=== PATIENT | female | born 1965 | race Caucasian/White ===

== ENCOUNTER 2018-11-25 14:16 | Emergency (ER) | payer BC, SELFPAY ==
[2018-11-25 14:19] VITALS: BP 147/80; PULSE 74; RESP 20; TEMP 37.1; O2SAT 97
--- NOTE | 2018-11-25 14:23 | W.ED.GENAD ---
Discharge Plan Disposition Patient Disposition: HOME Condition: Stable Discharge Details Chief Complaint: FacialProb Clinical Impression: Contusion of nose Primary Care Provider: Helga Herr ED Provider: Simone Gonzales Home Meds and New Rx's Prescriptions: No Action levothyroxine 25 MCG tablet 50 mcg PO DAILY RF: 0 trazodone 150 MG tablet 100 mg PO HS RF: 0 thyroid (pork) [[place] Thyroid] 30 mg Tablet 45 mg PO DAILY RF: 0 Discharge Instructions Additional Instructions: You can take 1000mg tylenol and 600mg ibuprofen every 6 hours for pain as needed when the swelling subsides if you feel there is a deformity of the nose follow up with your primary care provider to discuss ENT referral return to the emergency department if you have uncontrolled bleeding, persistent vomit, difficulty breathing or severe worsening of pain Medical Decision Making 53 yo female with no chronic medical problems comes in with chief complaint of nose/face pain. Her dog accidentally head butted her in the face about 30 minutes ago. HAd small amount of nose bleeding, none since. 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 She has no neck tenderness. Her nose is swollen, remains midline, no septal hemoatoma, full rom of the jaw and no palpable loose teeth. I suspect nose fx vs contusion. Given how straight the nose is even if there is a fx no tx inidicated at this time, and given this declines imaging at this time. Advised f/u with pcp and return precautions given Differential Diagnosis fracture, contusion HPI General Mode of arrival: ambulatory. Date/Time Provider Initiated Documentation: 11/25/18 14:17. Limitations to Documentation: no limitations. Information obtained by: patient. History of Present Illness 53 year old F presents to the emergency department with the chief complaint of nose pain, described as moderate, and is localized to the face. Patient started experiencing this minute(s) (30) and it has been constant. No relieving factors improve symptom(s), No exacerbating factors reported . Patient did receive the following treatments prior to arrival, none Related Data Home Medications Medication Instructions Recorded Confirmed levothyroxine 50 mcg PO DAILY 03/21/13 06/10/17 trazodone 100 mg PO HS 03/21/13 11/25/18 thyroid (pork) [[place] Thyroid] 45 mg PO DAILY 11/25/18 11/25/18 Allergies Allergy/AdvReac Type Severity Reaction Status Date / Time levofloxacin [From Levaquin] Allergy Severe Unverified 06/10/17 17:59 sulfamethoxazole Allergy Severe swollen Unverified 06/10/17 17:59 [From Bactrim] lips/face trimethoprim [From Bactrim] Allergy Severe swollen Unverified 06/10/17 17:59 lips/face ciprofloxacin [From Cipro] Allergy Unverified 11/25/18 14:22 General Stated Complaint: FacialProb ROM: 4 Review of Systems Review of Systems All systems reviewed & are unremarkable except as noted in HPI and below Constitutional Denies chills, Denies fever(s) and Denies weakness ENT Denies change in voice Cardiovascular Denies chest pain and Denies dyspnea Respiratory Denies dyspnea Gastrointestinal Denies abdominal pain, Denies nausea and Denies vomiting Musculoskeletal Denies joint swelling Integumentary/Breasts Denies rash Neurologic Denies weakness PFSH Social History Smoking/Tobacco Use Status: Former Tobacco Use Alcohol Intake: never Drug use: Never Substance use type: does not use Do you feel safe at home: Yes Do you feel safe in your relationship?: Yes Exam Const General: no acute distress Orientation: alert HENMT Head: normal to inspection Ears: external ears normal General nose exam: external nose normal Mouth: moist mucous membranes Eyes General: appearance normal, both eyes and all related structures Neck Neck: normal visual inspection Resp Effort & Inspection: normal respiratory effort and able to speak in complete sentences Cardio Rate: regular rate Skin General skin exam: no rashes or lesions noted Neuro General: alert and oriented x3 Extrem General: normal to inspection Psych Mental Status: mental status grossly normal Course Vital Signs Temperature 37.1 C 11/25/18 14:19 Pulse 74 11/25/18 14:19 Respiratory Rate 20 11/25/18 14:19 Blood Pressure 147/80 H 11/25/18 14:19 Pulse Oximetry 97 11/25/18 14:19 Temperature 37.1 C 11/25/18 14:19 Temperature Source Temporal Artery Scan 11/25/18 14:19 Pulse 74 11/25/18 14:19 Respiratory Rate 20 11/25/18 14:19 Respiratory Effort Non-Labored 11/25/18 14:19 Blood Pressure 147/80 H 11/25/18 14:19 Blood Pressure Position Sitting 11/25/18 14:19 Pulse Oximetry 97 11/25/18 14:19 Pain Level 8 11/25/18 14:19
--- NOTE | 2018-11-25 14:34 | ED.GENADUL_ITS ---
Discharge Plan Disposition Patient Disposition: HOME Condition: Stable Discharge Details Chief Complaint: FacialProb Clinical Impression: Contusion of nose Primary Care Provider: Hegla Herr ED Provider: Simone Gonzales Home Meds and New Rx's Prescriptions: No Action levothyroxine 25 MCG tablet 50 mcg PO DAILY RF: 0 trazodone 150 MG tablet 100 mg PO HS RF: 0 thyroid (pork) [[place] Thyroid] 30 mg Tablet 45 mg PO DAILY RF: 0 Discharge Instructions Additional Instructions: You can take 1000mg tylenol and 600mg ibuprofen every 6 hours for pain as needed when the swelling subsides if you feel there is a deformity of the nose follow up with your primary care provider to discuss ENT referral return to the emergency department if you have uncontrolled bleeding, persistent vomit, difficulty breathing or severe worsening of pain Medical Decision Making 53 yo female with no chronic medical problems comes in with chief complaint of nose/face pain. Her dog accidentally head butted her in the face about 30 minutes ago. HAd small amount of nose bleeding, none since. 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 She has no neck tenderness. Her nose is swollen, remains midline, no septal hemoatoma, full rom of the jaw and no palpable loose teeth. I suspect nose fx vs contusion. Given how straight the nose is even if there is a fx no tx inidicated at this time, and given this declines imaging at this time. Advised f/u with pcp and return precautions given Differential Diagnosis fracture, contusion HPI General Mode of arrival: ambulatory . Date/Time Provider Initiated Documentation: 11/25/18 14:17 . Limitations to Documentation: no limitations . Information obtained by: patient . History of Present Illness 53 year old F presents to the emergency department with the chief complaint of nose pain, described as moderate, and is localized to the face. Patient started experiencing this minute(s) (30) and it has been constant. No relieving factors improve symptom(s), No exacerbating factors reported . Patient did receive the following treatments prior to arrival, none Related Data Home Medications Medication Instructions Recorded Confirmed levothyroxine 50 mcg PO DAILY 03/21/13 06/10/17 trazodone 100 mg PO HS 03/21/13 11/25/18 thyroid (pork) [[place] Thyroid] 45 mg PO DAILY 11/25/18 11/25/18 Allergies Allergy/AdvReac Type Severity Reaction Status Date / Time levofloxacin [From Levaquin] Allergy Severe Unverified 06/10/17 17:59 sulfamethoxazole Allergy Severe swollen Unverified 06/10/17 17:59 [From Bactrim] lips/face trimethoprim [From Bactrim] Allergy Severe swollen Unverified 06/10/17 17:59 lips/face ciprofloxacin [From Cipro] Allergy Unverified 11/25/18 14:22 General Stated Complaint: FacialProb ROM: 4 Review of Systems Review of Systems All systems reviewed & are unremarkable except as noted in HPI and below Constitutional Denies chills, Denies fever(s) and Denies weakness ENT Denies change in voice Cardiovascular Denies chest pain and Denies dyspnea Respiratory Denies dyspnea Gastrointestinal Denies abdominal pain, Denies nausea and Denies vomiting Musculoskeletal Denies joint swelling Integumentary/Breasts Denies rash Neurologic Denies weakness PFSH Social History Smoking/Tobacco Use Status: Former Tobacco Use Alcohol Intake: never Drug use: Never Substance use type: does not use Do you feel safe at home: Yes Do you feel safe in your relationship?: Yes Exam Const General: no acute distress Orientation: alert HENMT Head: normal to inspection Ears: external ears normal General nose exam: external nose normal Mouth: moist mucous membranes Eyes General: appearance normal, both eyes and all related structures Neck Neck: normal visual inspection Resp Effort & Inspection: normal respiratory effort and able to speak in complete sentences Cardio Rate: regular rate Skin General skin exam: no rashes or lesions noted Neuro General: alert and oriented x3 Extrem General: normal to inspection Psych Mental Status: mental status grossly normal Course Vital Signs Temperature 37.1 C 11/25/18 14:19 Pulse 74 11/25/18 14:19 Respiratory Rate 20 11/25/18 14:19 Blood Pressure 147/80 H 11/25/18 14:19 Pulse Oximetry 97 11/25/18 14:19 Temperature 37.1 C 11/25/18 14:19 Temperature Source Temporal Artery Scan 11/25/18 14:19 Pulse 74 11/25/18 14:19 Respiratory Rate 20 11/25/18 14:19 Respiratory Effort Non-Labored 11/25/18 14:19 Blood Pressure 147/80 H 11/25/18 14:19 Blood Pressure Position Sitting 11/25/18 14:19 Pulse Oximetry 97 11/25/18 14:19 Pain Level 8 11/25/18 14:19
== END 2018-11-25 14:36 | disposition home or self-care (01) ==
PROVIDERS: Emergency Provider Emergency Medicine; PCP Family Medicine
DX: S00.33XA Contusion of nose, initial encounter (principal); W54.1XXA Struck by dog, initial encounter
CPT/HCPCS: 99282

== ENCOUNTER 2019-05-12 12:07 | Outpatient (CLI) | payer BC, SELFPAY ==
[2019-05-13 13:38] LABS: Lyme Ab w Rflx to Lyme Confirm Negative
== END 2019-05-12 12:27 ==
PROVIDERS: PCP Family Medicine; Visit Provider Otolaryngology
DX: R60.9 Edema, unspecified (principal)
CPT/HCPCS: 36415; 86618

== ENCOUNTER 2019-11-21 13:50 | Outpatient (CLI) | payer BC, SELFPAY ==
--- NOTE | 2019-11-21 13:45 | DI.RAD_ITS ---
EXAM: XR ANKLE LT COMPLETE CLINICAL HISTORY: ANKLE PAIN TECHNIQUE: 2D digital imaging was performed. COMPARISON: No exams were available for comparison FINDINGS: BONES: No acute fracture is present. There is a lucency in the medial aspect of the talar dome, which may represent an osteochondral defect. JOINTS:The ankle mortise is normally aligned. SOFT TISSUE: Normal. IMPRESSION: Findings suggestive of an osteochondral lesion of the talar dome. DATA REPOSITORY: RADIATION DOSE DELIVERED:
--- NOTE | 2019-11-21 13:45 | DI.RAD_ITS ---
EXAM: XR HIP RT COMPLETE AND AP PELVIS CLINICAL HISTORY: HIP PAIN. TECHNIQUE: 2D digital imaging was performed. COMPARISON: No exams were available for comparison FINDINGS: BONES: No acute fracture is present. No bony destructive lesion is seen. JOINTS: The joint space is well maintained. SOFT TISSUE: Normal. IMPRESSION: No acute abnormality. DATA REPOSITORY: RADIATION DOSE DELIVERED:
== END 2019-11-21 14:10 ==
PROVIDERS: PCP Family Medicine; Visit Provider Student in an Organized Health Care Education/Training Program
DX: M25.551 Pain in right hip (principal); M25.572 Pain in left ankle and joints of left foot; M89.8X7 Other specified disorders of bone, ankle and foot
CPT/HCPCS: 73502; 73610

== ENCOUNTER 2020-01-03 01:12 | Outpatient (CLI) | payer BC, SELFPAY ==
--- NOTE | 2020-01-03 10:50 | DI.MRI_ITS ---
EXAM: MR LOWER JOINT LT WO CLINICAL HISTORY: L ANKLE PAIN,OSTEOCHONDRAL TALAR DOME LESION, M89.9, M94.9. TECHNIQUE: Multiplanar multisequence MRI was performed. COMPARISON: XR ANKLE LT COMPLETE from 11/21/2019 FINDINGS: MR of the ankle was performed according to the usual protocol. Bones: There is abnormal signal of the medial aspect of the talus and there is a focal multiloculated subchondral cystic defect of medial talar dome as noted on recent plain films. This measures about 14 x 8 x 5 millimeters. The overlying cortex appears intact. There are subchondral cysts of the fibula at the talofibular joint, the central portion of the calcan eus and subtalar portion of the calcaneus, as well as the talus adjacent to the anterior subtalar price nt. Articular cartilage: Articular cartilage appears grossly intact as visualized. Ligaments: No significant ligamentous disruption of the joints of the ankle. Tendons: Mildly abnormal signal noted at plantar fascia attachment on the calcaneus. Achilles is unr emarkable. Medial and lateral tendons of the ankle are unremarkable. Additional: Small tibiotalar joint effusion. 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 Defect measures about 14 x 8 x 5 millimeters. DATA REPOSITORY:
== END 2020-01-03 01:32 ==
LOC: DI 01:12
PROVIDERS: PCP Family Medicine; Visit Provider Student in an Organized Health Care Education/Training Program
DX: M25.572 Pain in left ankle and joints of left foot (principal); M25.472 Effusion, left ankle; M93.272 Osteochondritis dissecans, left ankle and joints of left foot
CPT/HCPCS: 73721

== ENCOUNTER 2020-02-28 01:18 | Outpatient (CLI) | payer BC, SELFPAY ==
[2020-02-28 15:06] LABS: Abs Immature Grans 0.01 k/cumm (0.0-0.09); Absolute Basophil Count 0.02 k/cumm (0.0-0.2); Absolute Eosinophil Count 0.22 k/cumm (0.0-0.7); Absolute Monocyte Count 0.53 k/cumm (0.11-0.7); Absolute Neutrophil Count 3.64 k/cumm (1.2-6.7); Basophils % 0.3; Eosinophils % 3.4; HCT 40.7 % (36.0-46.0); HGB 14.2 g/dL (12.0-15.5); Immature Grans % 0.2 %; Lymphocytes % 31.2; Mean Corp. HGB Concentration 34.9 g/dL (32.0-36.0); Mean Corpuscular Hemoglobin 31.2 pg (27.0-33.0); Mean Corpuscular Volume 89.5 fL (80-95); Mean Platelet Volume 10.5 fL (8.0-11.0); Monocytes % 8.3; Neutrophils % 56.6; Platelet Count 258 x1000/uL (130-400); RBC 4.55 m/cumm (4.00-5.20); White Blood Cell Count 6.42 k/cumm (4.4-10.8)
[2020-02-28 15:55] LABS: ESR 14 mm/hr (0-30)
[2020-02-28 21:40] LABS: Rheumatoid Factor <8.6 IU/mL (<12.0)
[2020-02-29 15:03] LABS: ANA Interpretation Negative (Negative)
== END 2020-02-28 01:38 ==
PROVIDERS: PCP Family Medicine; Visit Provider Orthopaedic Surgery Foot and Ankle Surgery
DX: M06.9 Rheumatoid arthritis, unspecified (principal)
CPT/HCPCS: 85652; 85025; 86038; 86431

== ENCOUNTER 2020-12-13 09:50 | Emergency (ER) | payer BC, SELFPAY ==
[2020-12-13] VITALS (34 sets, daily range): BP systolic 104–146; BP diastolic 71–90; PULSE 59–76; RESP 8–19; TEMP 36.5; O2SAT 94–99
--- NOTE | 2020-12-13 09:45 | RT.EKG_ITS ---
APPROVED REPORT Exam: Resting ECG Patient Location: E HR:58 bpm ECG Measurements Heart Rate 58 AXIS AL 158 P 46 QRSd 98 QRS 34 QT 407 T 35 QTc 401 Conclusion Sinus bradycardia...rate< 60 I have reviewed and interpreted ECG and agree with software generated interpretation.
--- NOTE | 2020-12-13 10:10 | ED.GENADUL_ITS ---
Discharge Plan Disposition Patient Disposition: HOME Condition: Stable Discharge Details Clinical Impression: Chest wall pain, Diarrhea, COVID-19, Acute otitis media with effusion of left ear Primary Care Provider: Helga Herr ED Provider: Katherine Ramirez Home Meds and New Rx's Prescriptions: New amoxicillin 500 mg capsule 500 mg PO TID 7 Days Qty: 21 RF: 0 prednisone 20 mg tablet See Rx Instructions .ROUTE .COMPLEX Qty: 12 RF: 0 Continued bupropion HCl [Wellbutrin XL] 300 mg tablet extended release 24 hr 300 mg PO QAM RF: 0 levothyroxine 25 MCG tablet 50 mcg PO DAILY RF: 0 trazodone 150 MG tablet 100 mg PO HS RF: 0 thyroid (pork) [[place] Thyroid] 30 mg Tablet 45 mg PO DAILY RF: 0 Discharge Instructions Instructions: Ear Infection (ED), Acute Diarrhea (ED), Chest Wall Pain (ED) Additional Instructions: Drink plenty of fluids and get plenty of rest. Alternate tylenol and motrin as needed and directed for pain. Your prescriptions have been sent electronically to your pharmacy. Call the pharmacy to make sure your prescriptions are ready before pickup. Take the prescriptions as directed. Call your primary care doctor's office today to schedule a follow-up appointment for reevaluation and for outpatient Covid test and for outpatient stress test if your chest pain persists. Call your ENT doctor today to reschedule your follow-up appointment for your left ear pain. Return immediately to the emergency department if you develop any worsening or new concerning symptoms. Stand Alone Forms: Work Release Discharge Data Discharge Physician: Katherine Ramirez Medical Decision Making 1015 -- 55yo F w/ a h/o anxiety, depression, hypothyroidism who is recently diagnosed with COVID on 11/25 presents for chest pain and shortness of breath since yesterday, worse today. EKG on arrival notes a rate of 58, sinus, no STEMI, not diagnostic. Vitals within normal limits. O2 sat 98% on RA. Pt appears comfortable without any signs of respiratory distress. Lungs CTA b/l. Differential diagnoses include pneumonia, PE, dehydration, electrolyte abnormality, etc. Will place an IV, bolus IVF, IV toradol and zofran, screening labs and CT chest. 1220 --patient has remained hemodynamically stable on the monitor. Oxygen saturation 96-98 % on room air. Labs and imaging reviewed and unremarkable. Normal white blood cell count. Negative troponin. AST elevated at 90. CT chest negative for PE and pneumonia. Patient reassessed and she states she feels slightly better. As patient is not considered high risk, she did not qualify for monoclonal antibody infusion. She is agreeable to stay for repeat troponin. 1400 --repeat troponin negative. Repeat EKG unchanged. Patient reassessed and she still feels better and feels good to go home. Oxygen saturation has remained 97 to 98% on room air. As patient has also complained of left ear pressure and appears consistent with otitis media with effusion, will treat with p.o. steroids and antibiotics. She was given 1 dose of each here and prescriptions sent electronically to her pharmacy. She was advised to call her primary care doctor today to schedule a follow-up appointment for reevaluation and for recommendations when to return to work. She was also advised to follow-up with ENT for reevaluation. Usual and customary return precautions given prior to discharge. Medical Records Medical records reviewed: Yes I reviewed the patient's medical records. Imaging Data Radiologic Study: Radiologist's impression: CT CHEST PE CTA CLINICAL HISTORY: chest tightness, sob, r/o PE/pneumonia. TECHNIQUE: Imaging Protocol: Axial CT angiography was performed with multi- slice acquisition and multi-planar and/or 3D reconstructions. CONTRAST MATERIAL: Intravenous: Omnipaque 350 Contrast volume:structured data in ml COMPARISON: US ABDOMEN ULTRASOUND (P) from 05/20/2011 US ABDOMEN ULTRASOUND (P) from 05/20/2011 FINDINGS: Pulmonary Arteries: No evidence of filling defect to suggest pulmonary emboli. Tracheobronchial tree: Patent where visualized. Mediastinum and Alyce: No dominant adenopathy or fluid collection. Pulmonary parenchyma: No consolidation or dominant measurable mass. Lungs are expiratory limiting evaluation for pneumonia. Dependent changes are seen. Pleura: No effusion or pneumothorax. Heart: The heart is not dilated. No coronary artery calcifications are seen. Aorta: Thoracic aorta non-dilated. Upper abdomen: Status post cholecystectomy. Liver cyst. Bones: Mild degenerative disc changes. Tubes, Catheters, and Lines: None IMPRESSION: No evidence of pulmonary embolism or other acute abnormality.. Lab Data Lab results reviewed: Yes I reviewed the patient's lab results. Labs: Laboratory Tests Range/Units 12/13/20 12/13/20 12/13/20 10:15 10:15 10:15 WBC (4.4-10.8) 10^3/uL 5.66 RBC (3.93-5.22) 10^6/uL 4.59 Hgb (11.2-15.7) g/dL 14.1 Hct (36.0-46.0) % 40.3 MCV (80-95) fL 87.8 MCH (27.0-33.0) pg 30.7 MCHC (32.0-36.0) % 35.0 RDW (11.7-14.6) % 11.6 L Plt Count (130-400) 10^3/uL 224 MPV (8.0-11.0) fL 10.5 Immature Gran % 0.7 Neutrophils % 47.9 Lymphocytes % 36.9 Monocytes % 10.8 Eosinophils % 3.0 Basophils % 0.7 Nucleated RBC % % 0 Absolute Neutrophils (1.2-6.7) 10^3/uL 2.71 Absolute Lymphocytes (1.2-3.4) 10^3/uL 2.09 Absolute Monocytes (0.1-0.8) 10^3/uL 0.61 Absolute Eosinophils (0.0-0.7) 10^3/uL 0.17 Absolute Basophils (0.0-0.2) 10^3/uL 0.04 PT (9.3-11.0) sec 9.8 INR (0.9-1.1) 1.0 APTT (21.0-27.5) sec 23.0 Sodium (136-145) mmol/L 138 Potassium (3.5-5.1) mmol/L 4.3 Chloride (98-107) mmol/L 103 Carbon Dioxide (21.0-32.0) mmol/L 29.3 Anion Gap (3-11) mmol/L 5.7 BUN (7-18) mg/dL 15 Creatinine (0.55-1.02) mg/dL 0.8 Estimated GFR/1.73 m2 (mL/min/1.73m2) >= 60.00 Glucose (74-106) mg/dL 80 Calcium (8.5-10.1) mg/dL 9.5 Magnesium (1.8-2.4) mg/dL 1.9 Total Bilirubin (0.2-1.0) mg/dL 0.5 AST (15-37) U/L 37 ALT (14-59) U/L 90 H Alkaline Phosphatase (46-116) U/L 68 Troponin I (<0.06) ng/mL < 0.05 Total Protein (6.4-8.2) g/dL 7.2 Albumin (3.4-5.0) g/dL 4.1 Range/Units 12/13/20 13:15 WBC (4.4-10.8) 10^3/uL RBC (3.93-5.22) 10^6/uL Hgb (11.2-15.7) g/dL Hct (36.0-46.0) % MCV (80-95) fL MCH (27.0-33.0) pg MCHC (32.0-36.0) % RDW (11.7-14.6) % Plt Count (130-400) 10^3/uL MPV (8.0-11.0) fL Immature Gran % Neutrophils % Lymphocytes % Monocytes % Eosinophils % Basophils % Nucleated RBC % % Absolute Neutrophils (1.2-6.7) 10^3/uL Absolute Lymphocytes (1.2-3.4) 10^3/uL Absolute Monocytes (0.1-0.8) 10^3/uL Absolute Eosinophils (0.0-0.7) 10^3/uL Absolute Basophils (0.0-0.2) 10^3/uL PT (9.3-11.0) sec INR (0.9-1.1) APTT (21.0-27.5) sec Sodium (136-145) mmol/L Potassium (3.5-5.1) mmol/L Chloride (98-107) mmol/L Carbon Dioxide (21.0-32.0) mmol/L Anion Gap (3-11) mmol/L BUN (7-18) mg/dL Creatinine (0.55-1.02) mg/dL Estimated GFR/1.73 m2 (mL/min/1.73m2) Glucose (74-106) mg/dL Calcium (8.5-10.1) mg/dL Magnesium (1.8-2.4) mg/dL Total Bilirubin (0.2-1.0) mg/dL AST (15-37) U/L ALT (14-59) U/L Alkaline Phosphatase (46-116) U/L Troponin I (<0.06) ng/mL < 0.05 Total Protein (6.4-8.2) g/dL Albumin (3.4-5.0) g/dL ECG Data Attestation: I personally reviewed and interpreted this ECG (s) as follows: Interpretation: #1 -- rate of 58, sinus, no acute ST elevation or depression. [place] 158. QRS 98. QTc 401. #2 -- rate pf 67, sinus, no acute ST elevation or depression. [place] 169. QRS 96. QTc 428. HPI General Mode of arrival: ambulatory . Date/Time Provider Initiated Documentation: 12/13/20 09:50 . Limitations to Documentation: no limitations . Information obtained by: patient . HPI Narrative: Patient is a 55-year-old female with a history of anxiety, depression, hypothyroidism who recently tested positive for Covid on November 25 who presents to the ED with complaint of chest pain and shortness of breath since yesterday, worse this morning. Patient states she has had sharp chest pain for the past few days but became much worse this morning. She states she has had shortness of breath for the past week but this is worse today as well. She states she mainly has dyspnea on exertion. She states her chest pain occurs at random but also is worse with deep breaths. She describes the pain as substernal, pressure and sharp, without radiation and currently 4/10. He states he has been alternating Tylenol and Motrin for your diagnosed with Covid but has not taken any medication this morning. She states she contracted Covid from a coworker last month. She states she initially had profound weakness and then developed diarrhea. She states she has 1-2 episodes of watery brown or yellow diarrhea daily. She also admits to L ear pressure for the past week. She also admits to loss of sense of smell and taste. She states she has had intermittent chills and dry cough. She admits to nausea this morning. She denies abdominal pain, urinary symptoms. Related Data Home Medications Medication Instructions Recorded Confirmed levothyroxine 50 mcg PO DAILY 03/21/13 12/13/20 trazodone 100 mg PO HS 03/21/13 12/13/20 thyroid (pork) [[place] Thyroid] 45 mg PO DAILY 11/25/18 12/13/20 bupropion HCl 300 mg 24 hr tablet, 300 mg PO QAM 11/21/19 12/13/20 extended release amoxicillin 500 mg PO TID 7 Days #21 cap 12/13/20 prednisone See Rx Instructions .ROUTE 12/13/20 .COMPLEX #12 tab Previous Rx's Medication Instructions Recorded amoxicillin 500 mg PO TID 7 Days #21 cap 12/13/20 prednisone See Rx Instructions .ROUTE 12/13/20 .COMPLEX #12 tab Allergies Allergy/AdvReac Type Severity Reaction Status Date / Time levofloxacin [From Levaquin] Allergy Severe Unverified 12/13/20 10:05 sulfamethoxazole Allergy Severe swollen Unverified 12/13/20 10:05 [From Bactrim] lips/face trimethoprim [From Bactrim] Allergy Severe swollen Unverified 12/13/20 10:05 lips/face ciprofloxacin [From Cipro] Allergy Unverified 12/13/20 10:05 General Stated Complaint: RespSymp ROM: 2 Review of Systems All systems reviewed & are unremarkable except as noted in HPI and below Constitutional Constitutional: Reports as per HPI, Denies chills and Denies fever(s) Eyes Eyes: Denies blurry vision ENT Ears, Nose, Mouth, and Throat: Denies dizziness, Denies sore throat and Denies throat swelling Cardiovascular Cardiovascular: Reports chest pain and Reports dyspnea Respiratory Respiratory: Reports cough and Reports dyspnea Gastrointestinal Gastrointestinal: Denies abdominal pain, Denies diarrhea and Denies vomiting Genitourinary Genitourinary: Denies hematuria and Denies dysuria Musculoskeletal Musculoskeletal: Denies back pain and Denies numbness Integumentary/Breasts Skin/Breast: Denies lesions and Denies rash Neurologic Neurologic: Denies dizziness, Denies localized weakness and Denies numbness Allergic/Immunologic Allergic/Immunologic: Denies throat swelling PFSH Medical History (Updated 12/13/20 @ 13:44 by Katherine Ramirez DO) Anxiety Depression History of IBS Hypothyroidism Overactive bladder Surgical History (Updated 12/13/20 @ 10:40 by Katherine Ramirez DO) History of hysterectomy Hx of cholecystectomy Social History Smoking/Tobacco Use Status: Former Tobacco Use Smoking risk assessment performed?: Yes Alcohol Intake: never Drug use: Never Substance use type: does not use Current gender identity: female Do you feel safe at home: Yes Do you feel safe in your relationship?: Yes Exam Const General: cooperative and no acute distress HENMT Head: normal to inspection Ears: hearing grossly normal bilaterally, external ears normal and TM abnormal dull on the left, wth effusion serosanguinous on the left, erythematous on the left, with fluid behind the TM on the left and other (Right TM normal to inspection) General nose exam: external nose normal and nares normal Face and sinus: normal facial exam Eyes General: appearance normal, both eyes and all related structures EOM: EOM intact bilaterally Neck Neck: normal visual inspection and No submandibular swelling Lymphatic: no lymphadenopathy noted Chest Chest: normal inspection of the chest Resp Effort & Inspection: normal respiratory effort and able to speak in complete sentences Auscultation: clear to auscultation bilaterally Cardio Rate: regular rate Rhythm: regular rhythm GI Inspection: normal to inspection Palpation: soft, not firm, not rigid and nontender Auscultation: normal bowel sounds Skin General skin exam: no rashes or lesions noted Neuro General: patient alert, patient awake and patient oriented x3 Cognition: normal cognition Speech: speech normal Motor: muscle tone normal throughout Sensory Exam: no sensory deficits noted Extrem General: normal to inspection, full ROM, capillary refill normal, no calf tenderness bilaterally and no edema Psych Appearance: grossly normal Mental Status: mental status grossly normal Speech and Movement: speech and movement normal Affect: normal affect Course Vital Signs Vital signs: Vital Signs Temperature 97.7 F 12/13/20 09:59 Pulse 63 12/13/20 09:59 Respiratory Rate 14 12/13/20 09:59 Blood Pressure 146/83 H 12/13/20 09:59 Pulse Oximetry 98 12/13/20 09:59 Temperature 97.7 F 12/13/20 09:59 Temperature Source Skin 12/13/20 09:59 Pulse 63 12/13/20 09:59 Respiratory Rate 14 12/13/20 09:59 Respiratory Effort 12/13/20 10:06 Blood Pressure 146/83 H 12/13/20 09:59 Blood Pressure Position Sitting 12/13/20 09:59 Pulse Oximetry 98 12/13/20 09:59 Oxygen Delivery Method Room Air 12/13/20 09:59 Oxygen Flow Rate 0 04/08/21 09:59 Pain Level 5 12/13/20 09:59
[2020-12-13 10:23] LABS: Abs Immature Grans 0.04 10^3/uL (0.0-0.06); Absolute Basophil Count 0.04 10^3/uL (0.0-0.2); Absolute Eosinophil Count 0.17 10^3/uL (0.0-0.7); Absolute Lymphocyte Count 2.09 10^3/uL (1.2-3.4); Absolute Monocyte Count 0.61 10^3/uL (0.1-0.8); Absolute Neutrophil Count 2.71 10^3/uL (1.2-6.7); Basophils % 0.7; HCT 40.3 % (36.0-46.0); HGB 14.1 g/dL (11.2-15.7); Immature Grans % 0.7; Lymphocytes % 36.9; MCH 30.7 pg (27.0-33.0); MCV 87.8 fL (80-95); MPV 10.5 fL (8.0-11.0); Monocytes % 10.8; Neutrophils % 47.9; Nucleated RBC 0 %; Platelet Count 224 10^3/uL (130-400); RBC 4.59 10^6/uL (3.93-5.22); RDW 11.6 % (11.7-14.6); RDW-SD 37.2 fL; WBC 5.66 10^3/uL (4.4-10.8)
[2020-12-13 10:36] LABS: Prothrombin Time 9.8 sec (9.3-11.0)
[2020-12-13 10:43] LABS: ALT 90 U/L (14-59); AST 37 U/L (15-37); Albumin 4.1 g/dL (3.4-5.0); Alkaline Phosphatase 68 U/L (46-116); Anion Gap 5.7 mmol/L (3-11); BUN 15 mg/dL (7-18); Bilirubin, Total 0.5 mg/dL (0.2-1.0); CO2 29.3 mmol/L (21.0-32.0); CREATININE 0.8 mg/dL (0.55-1.02); Calcium 9.5 mg/dL (8.5-10.1); Chloride 103 mmol/L (98-107); Glucose 80 mg/dL (74-106); Magnesium 1.9 mg/dL (1.8-2.4); Potassium 4.3 mmol/L (3.5-5.1); Sodium 138 mmol/L (136-145); Total Protein 7.2 g/dL (6.4-8.2); Troponin I < 0.05 ng/mL (<0.06)
[2020-12-13] MEDS: Ondansetron 4 MG/2 ML VIAL IVP (10:45)
[2020-12-13] MEDS: Normal Saline 1,000 ML 1000 ML IV (10:45)
[2020-12-13] MEDS: Ketorolac 30 MG/ML VIAL IVP (10:50)
[2020-12-13] MEDS: Omnipaque 350 MG/ML 100 ML BTL IJ (11:30)
[2020-12-13] MEDS: Normal Saline - Diluent 50 ML VIAL IV (11:31)
[2020-12-13] MEDS: Normal Saline Flush 10 ML SYR IVP (11:31)
--- NOTE | 2020-12-13 11:45 | DI.CT_ITS ---
EXAM: CT CHEST PE CTA CLINICAL HISTORY: chest tightness, sob, r/o PE/pneumonia. TECHNIQUE: Imaging Protocol: Axial CT angiography was performed with multi-slice acquisition and mu lti-planar and/or 3D reconstructions. CONTRAST MATERIAL: Intravenous: Omnipaque 350 Contrast volume:structured data in ml COMPARISON: US ABDOMEN ULTRASOUND (P) from 05/20/2011 US ABDOMEN ULTRASOUND (P) from 05/20/2011 FINDINGS: Pulmonary Arteries: No evidence of filling defect to suggest pulmonary emboli. Tracheobronchial tree: Patent where visualized. Mediastinum and Alyce: No dominant adenopathy or fluid collection. Pulmonary parenchyma: No consolidation or dominant measurable mass. Lungs are expiratory limiting ev aluation for pneumonia. Dependent changes are seen. Pleura: No effusion or pneumothorax. Heart: The heart is not dilated. No coronary artery calcifications are seen. Aorta: Thoracic aorta non-dilated. Upper abdomen: Status post cholecystectomy. Liver cyst. Bones: Mild degenerative disc changes. Tubes, Catheters, and Lines: None IMPRESSION: No evidence of pulmonary embolism or other acute abnormality.. RADIATION DOSE DELIVERED: 524.88mGy.cm Total DLP DATA REPOSITORY: All CT scans at this facility are submitted to the National Radiology Data Registry (NRDR) Dose Index Registry (DIR) with the [employer] ([employer]). RADIATION OPTIMIZATION: All CT scans at this facility use at least one of these dose optimization te chniques: automated exposure control; mA and/or kV adjustment per patient size (includes targeted exa ms where dose is matched to clinical indication); or iterative reconstruction.
--- NOTE | 2020-12-13 12:00 | RT.EKG_ITS ---
APPROVED REPORT Exam: Resting ECG Patient Location: E HR:67 bpm ECG Measurements Heart Rate 67 AXIS [place] 169 P 56 QRSd 96 QRS 21 QT 405 T 34 QTc 428 Conclusion Sinus rhythm...normal P axis, V-rate 60- 99 I have reviewed and interpreted ECG and agree with software generated interpretation.
[2020-12-13 13:38] LABS: Troponin I < 0.05 ng/mL (<0.06)
[2020-12-13] MEDS: Amoxicillin 500 MG CAP PO (14:06)
[2020-12-13] MEDS: predniSONE 20 MG TAB 60 MG PO (14:06)
== END 2020-12-13 14:21 | disposition home or self-care (01) ==
PROVIDERS: Emergency Provider Physician Assistant; PCP Family Medicine
DX: R06.02 Shortness of breath (principal); U07.1 COVID-19; R07.81 Pleurodynia; R19.7 Diarrhea, unspecified; H65.192 Other acute nonsuppurative otitis media, left ear
CPT/HCPCS: 36415; 71275; 80053; 93005; 96361; 96374; 96375; 99285; 83735; 84484; 85025; 85610; 85730; 93010; J1885; J2405; J3490; J7512

== ENCOUNTER 2021-06-24 03:06 | Outpatient (CLI) | payer BC, SELFPAY ==
[2021-06-24 15:49] LABS: TSH (W/Ref FT4) 0.36 uIU/mL (0.36-3.74)
== END 2021-06-24 03:07 | disposition home or self-care (01) ==
LOC: LBO 03:06
PROVIDERS: PCP Family Medicine; Visit Provider Internal Medicine Endocrinology, Diabetes & Metabolism
DX: E03.9 Hypothyroidism, unspecified (principal)
CPT/HCPCS: 36415; 84443

== ENCOUNTER 2022-11-24 13:02 | Outpatient (CLI) | payer BC, SELFPAY ==
[2022-11-24 09:59] LABS: TSH 2.73 uIU/mL (0.36-3.74)
== END 2022-11-24 13:03 | disposition home or self-care (01) ==
PROVIDERS: PCP Family Medicine; Visit Provider Internal Medicine Endocrinology, Diabetes & Metabolism
DX: E04.2 Nontoxic multinodular goiter (principal)
CPT/HCPCS: 36415; 84443